=== PATIENT | female | born 1990 ===

== ENCOUNTER 2017-05-23 03:12 | Emergency (ER) | payer OTHER ==
[2017-05-23 03:19] VITALS: RESP 18
[2017-05-23 03:21] VITALS: TEMP 98.7
[2017-05-23] MEDS ORDERED: Fluorescein 1 mg Ophthalmic Strip OU ONE (03:24)
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
[2017-05-23 03:48] VITALS: BP 118/71; PULSE 73; O2SAT 98
== END 2017-05-23 03:55 | disposition home or self-care (01) ==
LOC: ED 03:12
DX: H18.893 Other specified disorders of cornea, bilateral (principal)